=== PATIENT | male | born 1950 | race Caucasian/White ===

== ENCOUNTER 2019-12-03 14:29 | Emergency (ER) | payer MEDICARE, OTHER ==
--- NOTE | 2019-12-03 14:59 | EDM.PDOC ---
ED HPI GENERAL MEDICAL PROBLEM - General Chief Complaint: Lower Extremity Injury/Pain Stated Complaint: PAIN IN L LEG Time Seen by Provider: 12/03/19 14:39 - History of Present Illness INITIAL COMMENTS - FREE TEXT/NARRATIVE: History of present illness: Patient presents with left hip pain that began this morning was atraumatic he woke up with it and now is radiating down the whole leg. He states he normally ambulates but he cannot bear weight due to pain he denies any falls there is been no rash he has never had this type of issue before. Movement seems to make it worse being still makes it better. He has a history of a cerebral hemorrhage 7 years ago but he is able to walk normally. Review of systems: As per history of present illness and below otherwise all systems reviewed and negative. Past medical history: As per history of present illness and as reviewed below otherwise noncontributory. Surgical history: As per history of present illness and as reviewed below otherwise noncontributory. Social history: No reported history of drug or alcohol abuse. Family history: As per history of present illness and as reviewed below otherwise noncontributory. Physical exam: HEENT: Atraumatic, normocephalic, pupils reactive, negative for conjunctival pallor or scleral icterus, mucous membranes moist, throat clear, neck supple, nontender, trachea midline. Lungs: Clear to auscultation, breath sounds equal bilaterally, chest nontender. Heart: S1S2, regular, negative for clicks, rubs, or JVD. Abdomen: Soft, nondistended, nontender. Negative for masses or hepatosplenomegaly. Negative for costovertebral tenderness. Pelvis: Stable nontender. Genitourinary: Deferred. Rectal: Deferred. Extremities: Atraumatic, negative for cords or calf pain. Neurovascular unremarkable. There are good pulses in both feet. No rashes noted no swelling Neuro: Awake, alert, oriented. Cranial nerves II through XII unremarkable. Cerebellum unremarkable. Motor and sensory unremarkable throughout. Exam nonfocal. Diagnostics: [] Therapeutics: [] Impression: Patient will undergo hip and pelvis x-rays and be reassessed. [] Plan: [] Definitive disposition and diagnosis as appropriate pending reevaluation and review of above. Left leg Pain Score (Numeric/FACES): 10 - Related Data Allergies Allergy/AdvReac Type Severity Reaction Status Date / Time No Known Allergies Allergy Verified 12/03/19 14:42 Home Meds: Home Meds Acetaminophen/HYDROcodone [Paramus 325-5 MG] 1 tab PO Q6H #15 tablet 12/03/19 [Rx] Aspirin 81 mg PO DAILY 12/03/19 [History] Docusate Sodium [Colace] 100 mg PO DAILY 12/03/19 [History] Escitalopram [Lexapro] 1.5 tab PO DAILY 12/03/19 [History] atorvaSTATin [Lipitor] 80 mg PO BEDTIME 12/03/19 [History] carBAMazepine [Tegretol] 200 mg PO BID 12/03/19 [History] polyethylene glycoL 3350 [MiraLAX] 1 dose PO WEEKLY 12/03/19 [History] predniSONE 60 mg PO WITHBREAKFAST 5 Days #15 tab 12/03/19 [Rx] Past Medical History - Past Health History Medical/Surgical History: Denies Medical/Surgical History HEENT History: Reports: Other (See Below) Other HEENT History: Left eye loss of vision after the stroke Cardiovascular History: Reports: High Cholesterol Other Respiratory History: Pneumonia, recent, and Last year Other Gastrointestinal History: dysphagia Other Genitourinary History: hx kidney stone Musculoskeletal History: Reports: Other (See Below) Other Musculoskeletal History: left hip Neurological History: Reports: CVA, Seizure Other Neuro History: 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, 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 Psychiatric History: Reports: Depression - Infectious Disease History Infectious Disease History: Reports: None - Past Surgical History Head Surgeries/Procedures: Reports: None Respiratory Surgical History: Reports: None Other Male Surgeries/Procedures: hx of "fertility surgery"-testicles Musculoskeletal Surgical History: Reports: Other (See Below) Social & Family History - Family History Family Medical History: Noncontributory HEENT: Reports: Cataract Cardiac: Reports: CAD, High Cholesterol Endocrine/Metabolic: Reports: Dorado's Disease Oncologic: Reports: Renal - Tobacco Use Smoking Status *Q: Never Smoker - Caffeine Use Caffeine Use: Reports: Coffee Caffeine Use Comment: 1cup/day of coffee/ 2drinks/day of soda - Recreational Drug Use Recreational Drug Use: No Review of Systems - Review of Systems Review Of Systems: See Below ED EXAM, GENERAL - Physical Exam Exam: See Below Course - Vital Signs Text/Narrative:: 3 view hip and pelvis left hip read and interpreted by me no acute fractures or dislocations are appreciated. Ultrasound of the left leg does not demonstrate any DVT. The patient has pain going to the leg starting from the groin I think this represents an L4-5 disc or radicular pain at that level the patient does not have any saddle anesthesias great toe strength normal again his vascular exam is normal with good pulses in both feet I do not believe this represents arterial blockage. Patient given Paramus in the ED discharged home on Paramus and a burst of prednisone. He is to follow-up with his primary care doctor. Last Recorded V/S: Last Vital Signs Temp 36.8 C 12/03/19 14:42 Pulse 66 12/03/19 16:00 Resp 17 12/03/19 16:00 BP 156/96 H 12/03/19 16:00 Pulse Ox 96 12/03/19 16:00 Departure - Departure Time of Disposition: 16:57 Disposition: Home, Self-Care 01 Condition: Good Clinical Impression: Lumbar radiculopathy - Discharge Information *PRESCRIPTION DRUG MONITORING PROGRAM REVIEWED*: Not Applicable *COPY OF PRESCRIPTION DRUG MONITORING REPORT IN PATIENT EMILE: Not Applicable Instructions: Radicular Pain Referrals: Delon Lang MD [Primary Care Provider] - Forms: ED Department Discharge Additional Instructions: The following information is given to patients seen in the emergency department who are being discharged to home. This information is to outline your options for follow-up care. We provide all patients seen in our emergency department with a follow-up referral. The need for follow-up, as well as the timing and circumstances, are variable depending upon the specifics of your emergency department visit. If you don't have a primary care physician on staff, we will provide you with a referral. We always advise you to contact your personal physician following an emergency department visit to inform them of the circumstance of the visit and for follow-up with them and/or the need for any referrals to a consulting specialist. The emergency department will also refer you to a specialist when appropriate. This referral assures that you have the opportunity for follow-up care with a specialist. All of these measure are taken in an effort to provide you with optimal care, which includes your follow-up. Under all circumstances we always encourage you to contact your private physician who remains a resource for coordinating your care. When calling for follow-up care, please make the office aware that this follow-up is from your recent emergency room visit. If for any reason you are refused follow-up, please contact the [facility] Emergency Department at and asked to speak to the emergency department charge nurse. Sepsis Event Note (ED) - Evaluation Sepsis Screening Result: No Definite Risk - Focused Exam Vital Signs: Vital Signs Temp Pulse Resp BP Pulse Ox 12/03/19 16:00 66 17 156/96 H 96 12/03/19 15:45 62 17 148/90 H 96 12/03/19 15:30 62 17 150/90 H 95 12/03/19 15:05 54 L 18 164/100 H 95 12/03/19 14:42 36.8 C 58 L 18 184/98 H 95
--- NOTE | 2019-12-03 16:06 | CR ---
Pelvis and left hip: AP view of the pelvis was obtained as well as AP and frog-leg lateral views of the left hip.. Joint spaces within both hips are preserved. Slight disc space narrowing is seen within the visualized lower lumbar spine with endplate osteophytes. Sacroiliac joints appear within normal limits. No fracture or other bony abnormality is appreciated. Impression: 1. Degenerative change within the lumbar spine. 2. AP pelvis and 2 view left hip study is otherwise unremarkable. Diagnostic code #2 This report was dictated in MDT
--- NOTE | 2019-12-03 16:20 | US ---
Left lower extremity deep venous ultrasound: Duplex and color Doppler evaluation was obtained of the left common femoral, superficial femoral, popliteal and anterior tibial vein. Normal compression and Doppler blood flow is seen. Impression: 1. No evidence of deep venous thrombosis within the left lower extremity. Diagnostic code #1 This report was dictated in MDT
[2019-12-03] MEDS ORDERED: Acetaminophen/HYDROcodone 325-5 MG Tab PO ONE (16:58)
[2019-12-03 23:22] VITALS: BP 151/77; PULSE 54
== END 2019-12-03 17:18 | disposition home or self-care (01) ==
LOC: MW.ED 14:29
DX: M54.16 Radiculopathy, lumbar region (principal); E78.00 Pure hypercholesterolemia, unspecified; F32.9 Major depressive disorder, single episode, unspecified; R56.9 Unspecified convulsions; Z86.73 Personal history of transient ischemic attack (TIA), and cerebral infarction without residual deficits; Z79.82 Long term (current) use of aspirin; Z79.899 Other long term (current) drug therapy
CPT/HCPCS: 73502-26-LT; 73502-LT; 93971-26-LT; 93971-LT; 99283; 99284